=== PATIENT | female | born 2000 | race Caucasian/White ===

== ENCOUNTER 2024-02-20 12:03 | Emergency (ER) | payer MEDICAID ==
[~2024-02-20] VITALS: Ht 91.4 cm; Wt 86.4 kg
[2024-02-20 12:48] VITALS: BP 137/75; PULSE 90; RESP 16; O2SAT 98
[2024-02-20] MEDS ORDERED: POLOS EACHEYE (13:51)
[2024-02-20 14:27] VITALS: TEMP 98.1
== END 2024-02-20 14:29 | disposition home or self-care (01) ==
LOC: ER 12:04
DX: H10.89 Other conjunctivitis (principal)
CPT/HCPCS: 99283